=== PATIENT | male | born 1985 | race Caucasian/White ===

== ENCOUNTER 2017-09-25 22:26 | Emergency (ER) | payer BC ==
[2017-09-25 23:21] VITALS: BP 130/71
[2017-09-25] MEDS ORDERED: ACETAMINOPHEN 325 MG TABLET PO ONE (23:55)
--- NOTE | 2017-09-26 00:35 | ER Document Report ---
ED Fever - General Chief Complaint: Fever Stated Complaint: FEVER Time Seen by Provider: 09/26/17 00:21 Notes: Patient is a 32-year-old male who comes emergency department for chief complaint of fever, fever started yesterday, he states they have been 102, 103, 104, and 105 ranges. He states that he keeps running him and hurting all over throughout today. He actually denies a headache, cough, difficulty breathing, congestion, abdominal pain. He states he does have a sore throat but he frequently has a sore throat. Past medical history of sleep apnea and narcolepsy, only medication is Nuvigil. TRAVEL OUTSIDE OF THE [place] IN LAST 30 DAYS: No - Related Data Allergies/Adverse Reactions: No Known Allergies Allergy (Verified 05/30/14 20:54) Past Medical History - General Information source: Patient - Social History Smoking Status: Never Smoker Frequency of alcohol use: None Drug Abuse: None Lives with: Family Family History: Reviewed & Not Pertinent Pulmonary Medical History: Reports: Hx Pneumonia - 2008 Endocrine Medical History: Reports: Hx Hyperthyroidism, Hx Hypothyroidism Psychiatric Medical History: Reports: Hx Depression Past Surgical History: Reports: Hx Inguinal Hernia - Bilateral repaired as a child - Immunizations Hx Diphtheria, Pertussis, Tetanus Vaccination: Yes Review of Systems - Review of Systems Constitutional: See HPI EENT: See HPI Cardiovascular: No symptoms reported Respiratory: No symptoms reported Gastrointestinal: No symptoms reported Genitourinary: No symptoms reported Male Genitourinary: No symptoms reported Musculoskeletal: See HPI Skin: No symptoms reported Hematologic/Lymphatic: No symptoms reported Neurological/Psychological: No symptoms reported Physical Exam - Vital signs Vitals: Temp Pulse Resp BP Pulse Ox 102.3 F H 94 18 130/71 H 97 09/25/17 23:19 09/25/17 23:19 09/25/17 23:19 09/25/17 23:19 09/25/17 23:19 - Notes Notes: GENERAL: Patient is flushed but he is alert and otherwise well-appearing. HEAD: Normocephalic, atraumatic. EYES: Pupils equal, round, and reactive to light. Extraocular movements intact. ENT: Oral mucosa moist, tongue midline. [Nares patent, no nasal septal hematoma , TM's intact.] Unremarkable tonsil, uvula, posterior pharynx. Clear airway. NECK: Full range of motion. Supple. Trachea midline. No nuchal rigidity. LUNGS: Clear to auscultation bilaterally, no wheezes, rales, or rhonchi. No respiratory distress. HEART: Regular rate and rhythm. No murmur ABDOMEN: Soft, non-tender. Non-distended. Bowel sounds present in all 4 quadrants. EXTREMITIES: Moves all 4 extremities spontaneously. No edema, normal radial and dorsalis pedis pulses bilaterally. No cyanosis. BACK: no cervical, thoracic, lumbar midline tenderness. No saddle anesthesia, normal distal neurovascular exam. NEUROLOGICAL: Alert and oriented x3. Normal speech. [cranial nerves II through XII grossly intact]. PSYCH: Normal affect, normal mood. SKIN: Flushed warm skin. No rashes noted. Course - Re-evaluation Re-evalutation: Patient's headaches resolved with treatment of fever. Chronic sore throat, negative strep. CBC and chemistry are unremarkable. Patient with ongoing fevers. He denies tick bite but he admits that they have had multiple ticks throughout their house in the yard and he has seen them all over the place over the past couple weeks. No cough suggesting pneumonia, soft abdomen, no nuchal rigidity, alert and well-appearing. Because of patient's flulike symptoms, high spiking fevers, and exposure to ticks in the summer I do suspect that patient has [place] spotted fever although he does not have a rash or severe headache. Discussed with patient, decision was made to cover patient with doxycycline course, patient declines testing for tickborne illnesses, declines further evaluation. Discussed return precautions in detail with patient and family, they state satisfaction and agreement with plan. - Vital Signs Vital signs: Temp Pulse Resp BP Pulse Ox 99.9 F 94 18 130/71 H 97 09/26/17 00:42 09/25/17 23:19 09/26/17 00:42 09/25/17 23:19 09/25/17 23:19 - Laboratory Result Diagrams: 09/26/17 00:35 09/26/17 00:35 Laboratory results interpreted by me: 09/26/17 00:35 WBC 11.5 H Hgb 13.3 L RDW 14.2 H Discharge - Discharge Clinical Impression: Fever Qualifiers: Fever type: unspecified Qualified Code(s): R50.9 - Fever, unspecified Condition: Stable Disposition: HOME, SELF-CARE Additional Instructions: Your evaluation is suggestive of tickborne illness: [place] spotted fever. We are treating you with doxycycline. Take to completion. Take Tylenol or ibuprofen for fever and body aches, drink plenty fluids and rest. Follow-up with primary care. Return if you worsen including confusion, difficulty breathing, abdominal pain, or any other concerning or worsening symptoms. Prescriptions: Doxycycline Hyclate 100 mg PO BID #20 capsule Forms: Return to Work
[2017-09-26 00:50] LABS: ABSOLUTE BASOPHILS # (AUTO) 0.1 10^3/uL (0.0-0.2); ABSOLUTE EOSINOPHILS # (AUTO) 0.2 10^3/uL (0.0-0.6); ABSOLUTE LYMPHOCYTES (AUTO) 2.4 10^3/uL (0.5-4.7); ABSOLUTE MONOCYTES (AUTO) 1.2 10^3/uL (0.1-1.4); ABSOLUTE NEUT (AUTO) 7.6 10^3/uL (1.7-8.2); EOSINOPHILS % (AUTO) 1.4 % (0-6); HEMATOCRIT 38.9 % (37.9-51.0); HEMOGLOBIN 13.3 g/dL (13.5-17.0); LYMPHOCYTES % (AUTO) 20.7 % (13-45); MEAN CORPUSCULAR HEMOGLOBIN 29.2 pg (27.0-33.4); MEAN CORPUSCULAR HGB CONC 34.3 g/dL (32.0-36.0); MEAN CORPUSCULAR VOLUME 85 fl (80-97); MONOCYTES % (AUTO) 10.7 % (3-13); PLATELET COUNT 170 10^3/uL (150-450); RED BLOOD COUNT 4.57 10^6/uL (4.35-5.55); RED CELL DISTRIBUTION WIDTH 14.2 % (11.5-14.0); SEGMENTED NEUTROPHILS % (AUTO) 66.2 % (42-78); TOTAL CELLS COUNTED % (AUTO) 100 %; WHITE BLOOD COUNT 11.5 10^3/uL (4.0-10.5)
[2017-09-26 01:00] LABS: ALANINE AMINOTRANSFERASE 63 U/L (21-72); ALBUMIN 4.3 g/dL (3.5-5.0); ALKALINE PHOSPHATASE 63 U/L (38-126); ANION GAP 9 (5-19); ASPARTATE AMINO TRANSFERASE 36 U/L (17-59); BILIRUBIN,DIRECT 0.3 mg/dL (0.0-0.4); BILIRUBIN,TOTAL 0.6 mg/dL (0.2-1.3); BLOOD UREA NITROGEN 15 mg/dL (7-20); CALCIUM 9.6 mg/dL (8.4-10.2); CARBON DIOXIDE 30 mmol/L (22-30); CHLORIDE 101 mmol/L (98-107); GLUCOSE 91 mg/dL (75-110); POTASSIUM 4.5 mmol/L (3.6-5.0); SODIUM 139.8 mmol/L (137-145); TOTAL PROTEIN 7.3 g/dL (6.3-8.2)
[2017-09-26] MEDS ORDERED: DOXYCYCLINE HYCLATE 100 MG TABLET PO ONE (01:30)
== END 2017-09-26 01:56 | disposition home or self-care (01) ==
LOC: ER 22:26
DX: R50.9 Fever, unspecified (principal); J02.9 Acute pharyngitis, unspecified; G47.419 Narcolepsy without cataplexy; Z79.899 Other long term (current) drug therapy
CPT/HCPCS: 36415; 80053; 85025; 87070; 87077; 87880; 99283

== ENCOUNTER 2018-06-02 17:43 | Emergency (ER) | payer BC ==
[2018-06-02 18:43] LABS: APPEARANCE,URINE CLEAR; BILIRUBIN,URINE NEGATIVE (NEGATIVE); COLOR,URINE YELLOW; GLUCOSE, URINE NEGATIVE (NEGATIVE); KETONES,URINE NEGATIVE (NEGATIVE); LEUKOCYTE ESTERASE,URINE NEGATIVE (NEGATIVE); NITRITE,URINE NEGATIVE (NEGATIVE); PROTEIN,URINE NEGATIVE (NEGATIVE); UROBILINOGEN,URINE NEGATIVE mg/dL (<2.0)
--- NOTE | 2018-06-02 19:22 | ER Document Report ---
HPI - HPI Time Seen by Provider: 06/02/18 17:59 Pain Level: 4 Context: Patient is a 33-year-old male who presents to the emergency department with a chief complaint of difficulty swallowing, loss of voice, bilateral ear pain, and urinary frequency. His symptoms have been going on for the past 2 weeks. He also complains of an associated cough. States that his ears hurt the most. He has had some blood in his urine last week 1 day. He denies any penile discharge, or dysuria. His past medical history includes renal calculi, hypothyroidism, and sleep apnea. He wears a CPAP at home. He has not seen his primary care provider in regards to this issue. - CONSTITUTIONAL Constitutional: REPORTS: Fever. DENIES: Chills - EENT EENT: REPORTS: Sore Throat, Ear Pain - Bilateral. DENIES: Nasal Drainage-Clear, Congestion, Eye problems - NEURO Neurology: DENIES: Headache, Vision blurred, Dizzinesss / Vertigo - CARDIOVASCULAR Cardiovascular: DENIES: Chest pain - RESPIRATORY Respiratory: DENIES: Trouble Breathing - GASTROINTESTINAL Gastrointestinal: DENIES: Abdominal Pain - URINARY Urinary: REPORTS: Frequency - MUSCULOSKELETAL Musculoskeletal: DENIES: Extremity pain - DERM Skin Color: Normal Skin Problems: None Past Medical History - Social History Smoking Status: Unknown if Ever Smoked Family History: Reviewed & Not Pertinent Patient has suicidal ideation: No Patient has homicidal ideation: No Pulmonary Medical History: Reports: Hx Pneumonia - 2009 Endocrine Medical History: Reports: Hx Hyperthyroidism, Hx Hypothyroidism Renal/ Medical History: Denies: Hx Peritoneal Dialysis Psychiatric Medical History: Reports: Hx Depression Past Surgical History: Reports: Hx Inguinal Hernia - Bilateral repaired as a child - Immunizations Hx Diphtheria, Pertussis, Tetanus Vaccination: Yes Vertical Provider Document - CONSTITUTIONAL Agree With Documented VS: Yes Exam Limitations: No Limitations General Appearance: No Apparent Distress, Obese - INFECTION CONTROL TRAVEL OUTSIDE OF THE [place] IN LAST 30 DAYS: No - HEENT HEENT: Atraumatic, Normocephalic - RESPIRATORY Respiratory: Breath Sounds Normal - CARDIOVASCULAR Cardiovascular: Regular Rate - GI/ABDOMEN Gastrointestinal: Abdomen Soft - MUSCULOSKELETAL/EXTREMETIES Musculoskeletal/Extremeties: FROM - NEURO Level of Consciousness: Awake, Alert, Appropriate Motor/Sensory: No Motor Deficit, No Sensory Deficit - DERM Integumentary: Warm, Dry Course - Re-evaluation Re-evalutation: 06/02/18 18:30 Patient does have otitis externa. He will be started on Ciprodex the bilateral ears. His rapid strep test is negative. I will also send for Monospot, as the patient has had the symptoms for a while and he also has a sore throat. 06/02/18 20:40 Patient's Monospot is negative. He will be sent home with amoxicillin for acute otitis media. I do not suspect patient has mastoiditis. Verbal discharge instructions were given to the patient. They verbalized understanding. They are stable for discharge. - Vital Signs Vital signs: Temp Pulse Resp BP Pulse Ox 99.3 F 87 18 177/78 H 97 06/02/18 17:52 06/02/18 17:52 06/02/18 17:52 06/02/18 17:52 06/02/18 17:52 Discharge - Discharge Clinical Impression: Sore throat Otitis externa Qualifiers: Otitis externa type: noninfectious Noninfectious otitis externa type: other type Chronicity: acute Laterality: bilateral Qualified Code(s): H60.593 - Other noninfective acute otitis externa, bilateral Otitis media Qualifiers: Otitis media type: unspecified Chronicity: acute Qualified Code(s): H66.90 - Otitis media, unspecified, unspecified ear Condition: Stable Disposition: HOME, SELF-CARE Instructions: Otitis Externa ([facility]) Additional Instructions: You were seen today in the emergency department for ear pain, and urinary symptoms. You have an ear infection in both the inner and outer portion of your ears. You have been given antibiotics. Please take all your antibiotics as prescribed. You were also given steroid and antibiotic eardrops. Place 4 drops to each ear twice a day for the next 7 days. Your urine was normal. Please follow up with your primary care doctor in regards to this visit. If you develop shortness of breath, difficulty breathing, or any symptoms that are worrisome to you, please return to the emergency department. Prescriptions: Amoxicillin Trihydrate [Amoxil 875 mg Tablet] 1 tab PO BID 10 Days #20 tablet Referrals: ALEX WESTON DO [Primary Care Provider] - Follow up as needed
[2018-06-02] MEDS ORDERED: CIPROFLOXACIN HCL/DEXAMETH OTIC DROP 7.5 ML AU ONE (20:28)
[2018-06-02 21:12] VITALS: BP 150/75
== END 2018-06-02 20:45 | disposition home or self-care (01) ==
LOC: ER 17:43
DX: H66.90 Otitis media, unspecified, unspecified ear (principal); H60.593 Other noninfective acute otitis externa, bilateral; J02.9 Acute pharyngitis, unspecified; R50.9 Fever, unspecified; H92.03 Otalgia, bilateral; R35.0 Frequency of micturition; R05 Cough; R31.9 Hematuria, unspecified; G47.30 Sleep apnea, unspecified; Z99.89 Dependence on other enabling machines and devices; Z87.442 Personal history of urinary calculi; Z87.01 Personal history of pneumonia (recurrent)
CPT/HCPCS: 99283; 36415; 87070; 87880; 86308; 81001; J3490

== ENCOUNTER 2019-03-27 17:14 | Emergency (ER) | payer BC ==
[2019-03-27] MEDS ORDERED: IPRATROPIUM/ALBUTEROL 0.5-2.5 MG/3 ML AMPUL NEB ONE (17:48)
--- NOTE | 2019-03-27 17:52 | ER Document Report ---
HPI - HPI Patient complains to provider of: cough Time Seen by Provider: 03/27/19 17:43 Onset: Last week Onset/Duration: Sudden Context: 34-year-old male with history of swine flu many years ago presents emergency department reports he not feeling well since last week. Reports his ears were hurting and sinuses were hurting. Reports he has been coughing with congestion to the point he is vomiting afterwards. Reports he had diarrhea possibly 3 times today. Reports decreased appetite. Denies fever. Associated Symptoms: Nonproductive cough, Diarrhea, Vomiting - After cough Exacerbated by: Denies Relieved by: Denies Similar symptoms previously: No Recently seen / treated by doctor: No Past Medical History - General Information source: Patient - Social History Smoking Status: Unknown if Ever Smoked Cigarette use (# per day): No - Chews tobacco Frequency of alcohol use: None Drug Abuse: None Lives with: Family Family History: Reviewed & Not Pertinent Patient has suicidal ideation: No Patient has homicidal ideation: No Pulmonary Medical History: Reports: Hx Pneumonia - 2009 Endocrine Medical History: Reports: Hx Hyperthyroidism, Hx Hypothyroidism Renal/ Medical History: Denies: Hx Peritoneal Dialysis Psychiatric Medical History: Reports: Hx Depression Past Surgical History: Reports: Hx Inguinal Hernia - Bilateral repaired as a child - Immunizations Hx Diphtheria, Pertussis, Tetanus Vaccination: Yes Vertical Provider Document - CONSTITUTIONAL Agree With Documented VS: Yes Exam Limitations: No Limitations General Appearance: WD/WN, No Apparent Distress - INFECTION CONTROL TRAVEL OUTSIDE OF THE [place] IN LAST 30 DAYS: No - HEENT HEENT: Atraumatic, Normal ENT Exam, Normocephalic, PERRLA. negative: Conjuctival Injection, Pharyngeal Erythema, Tympanic Membrane Red, Tympanic Membrane Bulging - NECK Neck: Normal Inspection, Supple. negative: Lymphadenopathy-Left, Lymphadenopathy-Right - RESPIRATORY Respiratory: No Respiratory Distress, Rhonchi - CARDIOVASCULAR Cardiovascular: Regular Rate, Regular Rhythm - GI/ABDOMEN Gastrointestinal: Abdomen Soft, Abdomen Non-Tender - MUSCULOSKELETAL/EXTREMETIES Musculoskeletal/Extremeties: [place] - NEURO Level of Consciousness: Awake, Alert, Appropriate Motor/Sensory: No Motor Deficit - DERM Integumentary: Warm, Dry, No Rash Course - Re-evaluation Re-evalutation: 03/27/19 17:50 34-year-old male presents with reports of not feeling well since last week. Reports cough to the point he is vomiting after the cough. Reports some diarrhea today. Has not taken anything for the diarrhea. Respiratory rate even unlabored decreased rhonchi noted. Chest x-ray influenza test with DuoNeb ordered. 03/27/19 18:21 Influenza negative chest x-ray negative. Patient instructed on results. Patient reports he is feeling little bit better. Requesting work note. He was instructed follow-up with his primary care provider within the week for recheck. He verbalized understanding to all instructions. Chest X-Ray 03/27/19 17:48 IMPRESSION: No acute abnormality of the lungs. No focal airspace opacity - Vital Signs Vital signs: Temp Pulse Resp BP Pulse Ox 98.4 F 91 20 174/108 H 95 03/27/19 17:23 03/27/19 17:23 03/27/19 17:23 03/27/19 17:23 03/27/19 17:23 - Diagnostic Test Radiology reviewed: Image reviewed, Reports reviewed Discharge - Discharge Clinical Impression: Cough Condition: Stable Disposition: HOME, SELF-CARE Instructions: Acetaminophen, Tessalon Perles ([facility]) Additional Instructions: *You have been evaluated for cold symptoms today, cough, *Increase fluid intake *Medication as prescribed *Monitor your temperature, take Tylenol as indicated *Follow up with a primary care provider within 1 week *Return to ED for worsening condition, changes, needs Monitor your blood pressure. Your blood pressure was elevated today. This may be because you were anxious, in pain or because you need medication. It is important to follow up with your primary care provider for full evaluation. Prescriptions: Benzonatate [Tessalon Perles 100 mg Capsule] 100 mg PO ASDIR PRN #30 capsule PRN Reason: Forms: Elevated Blood Pressure, Return to Work Referrals: ALEX WESTON DO [Primary Care Provider] - Follow up in 3-5 days
--- NOTE | 2019-03-27 18:12 | RADIOLOGY REPORT (SQ) ---
EXAM DESCRIPTION: CHEST 2 VIEWS COMPLETED DATE/TIME: 03/27/2019 5:54 pm REASON FOR STUDY: cough COMPARISON: 03/25/2016 EXAM PARAMETERS: NUMBER OF VIEWS: two views TECHNIQUE: Digital Frontal and Lateral radiographic views of the chest acquired. RADIATION DOSE: NA LIMITATIONS: none FINDINGS: LUNGS AND PLEURA: No opacities, masses or pneumothorax. No pleural effusion. MEDIASTINUM AND HILAR STRUCTURES: No masses or contour abnormalities. HEART AND VASCULAR STRUCTURES: Heart normal size. No evidence for failure. BONES: No acute findings. HARDWARE: None in the chest. OTHER: No other significant finding. IMPRESSION: No acute abnormality of the lungs. No focal airspace opacity TECHNICAL DOCUMENTATION: JOB ID: [id number] [employer]- All Rights Reserved Reading location - IP/workstation name: [email or web address]
[2019-03-27 19:23] LABS: A TYPE INFLUENZA AG NEGATIVE (NEGATIVE); B INFLUENZA AG NEGATIVE (NEGATIVE)
[2019-03-27] MEDS ORDERED: BENZONATATE 100 MG CAPSULE PO ONE (19:26)
[2019-03-27 19:48] VITALS: BP 138/82
== END 2019-03-27 19:47 | disposition home or self-care (01) ==
LOC: ER 17:14
DX: R05 Cough (principal); R11.10 Vomiting, unspecified; R19.7 Diarrhea, unspecified; Z72.0 Tobacco use; Z87.01 Personal history of pneumonia (recurrent)
CPT/HCPCS: 94640; 99283; 87804; 71046; J7620